=== PATIENT | male | born 1960 | race Caucasian/White ===

== ENCOUNTER 2018-09-11 02:19 | Emergency (ER) | payer OTHER ==
[~2018-09-11] VITALS: Ht 167.6 cm; Wt 126.3 kg
[~2018-09-11 02:19] MED LIST: ATIVAN0.5 M1 PO; BAY PO; BUSPAR5 MG PO; COLACE100 MG PO; GLU5 PO; LIPI10 PO; METFORMIN HCL1000 MG PO; METOPROLOL TART25 M1 PO; NIT0.4 SL; NORCO1 TA2 PO; RESTORIL15 MG PO; ZES10 PO
[2018-09-11 02:27] VITALS: Ht 167.6 cm; Wt 126.3 kg
[2018-09-11 03:40] VITALS: BP 150/91
== END 2018-09-11 04:54 | disposition home or self-care (01) ==
LOC: ED 02:19
DX: R09.02 Hypoxemia (principal); R09.81 Nasal congestion; E11.9 Type 2 diabetes mellitus without complications; I10 Essential (primary) hypertension; Z86.73 Personal history of transient ischemic attack (TIA), and cerebral infarction without residual deficits
CPT/HCPCS: J1885

== ENCOUNTER 2019-01-28 21:28 | Emergency (ER) | payer OTHER ==
[~2019-01-28] VITALS: Ht 170.2 cm; Wt 120.2 kg
[2019-01-28 21:36] VITALS: Ht 170.2 cm; Wt 120.2 kg
[2019-01-28 23:09] LABS: BASOPHIL % 1.6 % (0-2); PLATELET COUNT 262 x10^3mcL (130-400); RED CELL DISTRIBUTION WIDTH 13.2 % (11.5-14.5)
[2019-01-28 23:20] LABS: CALCIUM 9.6 mg/dL (8.5-10.1); CARBON DIOXIDE 24.1 mmol/L (21-32); CHLORIDE SERUM 103 mmol/L (98-107); CREATININE SERUM 0.9 mg/dL (0.7-1.3); GFR1 > 60 mL/min; GLUCOSE SERUM 161 mg/dL (74-106); POTASSIUM SERUM 4.1 mmol/L (3.5-5.1); SODIUM SERUM 140 mmol/L (136-145)
[2019-01-28 23:26] LABS: ALBUMIN 3.8 g/dL (3.4-5.0); ALKALINE PHOSPHATASE 72 U/L (46-116); ALT/SGPT 33 U/L (16-63); AST/SGOT 12 U/L (15-37); BILIRUBIN TOTAL 0.26 mg/dL (0.20-1.00); LIPASE 137 IU/L (73-393)
[2019-01-28 23:27] LABS: TOTAL PROTEIN, SERUM 9.1 g/dL (6.4-8.2)
[2019-01-28 23:40] LABS: microscopic required? NO
[2019-01-28 23:49] LABS: UA SPECIFIC GRAVITY 1.025 (1.005-1.035); urine erythrocyte NEGATIVE (NEGATIVE)
[2019-01-29 02:19] VITALS: BP 156/78
== END 2019-01-29 02:20 | disposition home or self-care (01) ==
LOC: ED 21:28
PROVIDERS: Emergency Medicine
DX: N40.1 Benign prostatic hyperplasia with lower urinary tract symptoms (principal); R39.11 Hesitancy of micturition; I10 Essential (primary) hypertension; E11.9 Type 2 diabetes mellitus without complications; Z86.73 Personal history of transient ischemic attack (TIA), and cerebral infarction without residual deficits
CPT/HCPCS: J1885; J2270; J7030